=== PATIENT | male | born 1950 | race African-American/Black ===

== ENCOUNTER 2023-01-23 17:37 | Emergency (ER) | payer OTHER ==
[2023-01-23 17:42] VITALS: TEMP 98
[2023-01-23] MEDS ORDERED: cloNIDine HCL 0.1 MG TAB PO STA (19:58)
[2023-01-23 20:38] LABS: Basophils % (A) 0 %; Eosinophils # (A) 0.1 k/uL (0-0.7); Eosinophils % (A) 1 %; HCT 37.6 % (39.0-53.0); HGB 12.1 gm/dL (13.0-17.5); Lymphocytes # (A) 1.5 k/uL (1.0-4.8); Lymphocytes % (A) 27 %; MCH 29.9 pg (25.0-35.0); MCHC 32.2 g/dL (31.0-37.0); MCV 92.9 fL (80.0-100.0); Monocytes # (A) 0.3 k/uL (0-1.0); Monocytes % (A) 6 %; Neutrophils # (A) 3.4 k/uL (1.3-7.7); Neutrophils % (A) 64 %; Platelet Count 165 k/uL (150-450); RBC 4.05 m/uL (4.30-5.90); RDW 13.8 % (11.5-15.5); WBC 5.3 k/uL (3.8-10.6)
[2023-01-23 20:52] LABS: ALT 14 U/L (4-49); AST 19 U/L (17-59); African American GFR (CKD) 31 (>60 ml/min/1.73 sqM); Albumin 3.6 g/dL (3.5-5.0); Alkaline Phosphatase 71 U/L (38-126); Anion Gap 7 mmol/L; Blood Urea Nitrogen 41 mg/dL (9-20); Calcium 9.9 mg/dL (8.4-10.2); Carbon Dioxide 30 mmol/L (22-30); Chloride 102 mmol/L (98-107); Glucose 143 mg/dL (74-99); Non-African American GFR(CKD) 26 (>60 ml/min/1.73 sqM); Potassium 3.9 mmol/L (3.5-5.1); Sodium 139 mmol/L (137-145); Total Bilirubin 0.3 mg/dL (0.2-1.3); Total Protein 6.8 g/dL (6.3-8.2)
--- NOTE | 2023-01-23 20:57 | ED ---
General Adult HPI - General Source: patient Mode of arrival: ambulatory Limitations: no limitations <Mariama Hernandes - Last Filed: 01/23/23 20:55> - General Source: RN notes reviewed, old records reviewed <Alexander Garcia - Last Filed: 01/23/23 21:30> - General Chief complaint: Recheck/Abnormal Lab/Rx Stated complaint: Hypertension Time Seen by Provider: 01/23/23 19:57 - History of Present Illness Initial comments: Patient is a 72 year-old male who presents the emergency department for high blood pressure. Patient presented [facility] for crack cocaine today. He was sent to the emergency department due to high blood pressure in the 200s/110s refractory to clonidine. Patient has a history of high blood pressure states he has been taking his medication as directed. He denies chest pain, shortness of breath, headache. (Mariama Hernandes) - Related Data Previous Rx's Medication Instructions Recorded cloNIDine HCL [Catapres] 0.1 mg PO TID 10 Days #30 tab 01/23/23 Allergies Allergy/AdvReac Type Severity Reaction Status Date / Time No Known Allergies Allergy Verified 01/23/23 17:42 Review of Systems ROS Other: All systems not noted in ROS Statement are negative. <Mariama Hernandes - Last Filed: 01/23/23 20:55> ROS Other: All systems not noted in ROS Statement are negative. <Alexander Garcia - Last Filed: 01/23/23 21:30> ROS Statement: Those systems with pertinent positive or pertinent negative responses have been documented in the HPI. Past Medical History Past Medical History: Diabetes Mellitus, Hypertension History of Any Multi-Drug Resistant Organisms: None Reported Past Surgical History: No Surgical Hx Reported Past Psychological History: No Psychological Hx Reported Smoking Status: Current every day smoker Past Alcohol Use History: None Reported Past Drug Use History: Cocaine <Mariama Hernandes - Last Filed: 01/23/23 20:55> General Exam Limitations: no limitations <Mariama Hernandes - Last Filed: 01/23/23 20:55> General appearance: alert, in no apparent distress Head exam: Present: atraumatic, normocephalic Eye exam: Present: normal appearance, PERRL ENT exam: Present: normal exam Neck exam: Present: normal inspection. Absent: tenderness, meningismus Respiratory exam: Present: normal lung sounds bilaterally. Absent: respiratory distress, wheezes Cardiovascular Exam: Present: regular rate, normal rhythm GI/Abdominal exam: Present: soft. Absent: distended, tenderness, guarding Extremities exam: Present: normal inspection, normal capillary refill. Absent: pedal edema Neurological exam: Present: alert, oriented X3, CN II-XII intact. Absent: motor sensory deficit Psychiatric exam: Present: normal affect, normal mood Skin exam: Present: warm, dry, intact. Absent: cyanosis, diaphoretic <Alexander Garcia - Last Filed: 01/23/23 21:30> - General Exam Comments Initial Comments: Visual Physical Exam Vital signs reviewed General: Well-appearing, nontoxic, no acute distress. Head: Normocephalic, atraumatic Eyes: PERRLA, EOMI ENT: Airway patent Chest: Nonlabored breathing Skin: No visual rash, normal skin tone Neuro: Alert and oriented 3 Musculoskeletal: No gross abnormalities (Mariama Hernandes) Course Vital Signs 01/23/23 01/23/23 01/23/23 17:40 19:54 20:50 Temperature 98 F Pulse Rate 63 Respiratory 20 Rate Blood Pressure 157/88 186/102 220/110 O2 Sat by Pulse 96 Oximetry 01/23/23 21:17 Temperature Pulse Rate 66 Respiratory 18 Rate Blood Pressure 195/132 O2 Sat by Pulse Oximetry Medical Decision Making - Lab Data Result diagrams: 01/23/23 20:20 01/23/23 20:20 <Mariama Hernandes - Last Filed: 01/23/23 20:55> - Lab Data Result diagrams: 01/23/23 20:20 01/23/23 20:20 <Alexander Garcia - Last Filed: 01/23/23 21:30> - Medical Decision Making Was pt. sent in by a medical professional or institution (, PA, COMPLIANCE ADMINISTRATOR, urgent care, hospital, or detention...) When possible be specific @ -[Sent in by [facility] for elevated blood pressure Did you speak to anyone other than the patient for history (EMS, parent, family, police, friend...)? What history was obtained from this source @ -No Did you review nursing and triage notes (agree or disagree)? Why? @ -I reviewed and agree with nursing and triage notes Were old charts reviewed (outside hosp., previous admission, EMS record, old EKG, old radiological studies, urgent care reports/EKG's, detention records)? Report findings @ -No old charts were reviewed Differential Diagnosis (chest pain, altered mental status, abdominal pain women, abdominal pain men, vaginal bleeding, weakness, fever, dyspnea, syncope, headache, dizziness, GI bleed, back pain, seizure, CVA, palpatations, mental health, musculoskeletal)? @ -[Hypertension, chronic kidney disease, hypertensive emergency, hypertensive urgency, asymptomatic hypertension EKG interpreted by me (3pts min.). @ -EKG: Sinus rhythm, rate of 64, LVH, WA interval 208, QRS duration 85, QTC 440, no ST segment elevation. X-rays interpreted by me (1pt min.). @ -None done CT interpreted by me (1pt min.). @ -None done U/S interpreted by me (1pt. min.). @ -None done What testing was considered but not performed or refused? (CT, X-rays, U/S, labs)? Why? @ -None What meds were considered but not given or refused? Why? @ -None Did you discuss the management of the patient with other professionals (professionals i.e. , PA, COMPLIANCE ADMINISTRATOR, lab, RT, psych nurse, social media designer, receptionist scheduler, teacher, tax compliance officer, case liner)? Give summary @ -No Was smoking cessation discussed for >3mins.? @ -No Was critical care preformed (if so, how long)? @ -No Were there social determinants of health that impacted care today? How? (Homelessness, low income, unemployed, alcoholism, drug addiction, transportation, low edu. Level, literacy, decrease access to med. care, correction, rehab)? @ -[Crack cocaine use Was there de-escalation of care discussed even if they declined (Discuss DNR or withdrawal of care, Hospice)? DNR status @ -No What co-morbidities impacted this encounter? (DM, HTN, Smoking, COPD, CAD, Cancer, CVA, ARF, Chemo, Hep., AIDS, mental health diagnosis, sleep apnea, mor bid obesity)? @ -[History of CK D, hypertension, diabetes, crack cocaine use Was patient admitted / discharged? Hospital course, mention meds given and route, prescriptions, significant lab abnormalities, going to OR and other pertinent info. @ -[72-year-old male with chronic kidney disease, hypertension, and currently in rehabilitation for cocaine use. Patient has asymptomatic hypertension. He states his blood pressure has been elevated for many years. His blood pressure is elevated in the emergency department however he is asymptomatic. He has an elevated creatinine without a baseline for comparison but he does report he's been told he has chronic kidney disease. He has mild anemia. Patient is currently on lisinopril, hydrochlorothiazide, nifedipine he was started on clonidine for resistant hypertension. I think the patient will benefit from continuation on this medication, 0.1 mg 3 times daily and he should follow with his primary care physician. Undiagnosed new problem with uncertain prognosis? @ -No Drug Therapy requiring intensive monitoring for toxicity (Heparin, Nitro, Insulin, Cardizem)? @ -No Were any procedures done? @ -No Diagnosis/symptom? @ -Asymptomatic hypertension Acute, or Chronic, or Acute on Chronic? @ -Chronic Uncomplicated (without systemic symptoms) or Complicated (systemic symptoms)? @ -Complicated Side effects of treatment? @ -No Exacerbation, Progression, or Severe Exacerbation? @ -No Poses a threat to life or bodily function? How? (Chest pain, USA, CA, pneumonia, PE, COPD, DKA, ARF, appy, cholecystitis, CVA, Diverticulitis, Homicidal, Suicidal, threat to staff... and all critical care pts) @ -Moderate risk, untreated hypertension (Alexander Garcia) - Lab Data Lab Results 01/23/23 01/23/23 Range/Units 20:20 20:20 WBC 5.3 (3.8-10.6) k/uL RBC 4.05 L (4.30-5.90) m/uL Hgb 12.1 L (13.0-17.5) gm/dL Hct 37.6 L (39.0-53.0) % MCV 92.9 (80.0-100.0) fL MCH 29.9 (25.0-35.0) pg MCHC 32.2 (31.0-37.0) g/dL RDW 13.8 (11.5-15.5) % Plt Count 165 (150-450) k/uL MPV 9.0 Neutrophils % 64 % Lymphocytes % 27 % Monocytes % 6 % Eosinophils % 1 % Basophils % 0 % Neutrophils # 3.4 (1.3-7.7) k/uL Lymphocytes # 1.5 (1.0-4.8) k/uL Monocytes # 0.3 (0-1.0) k/uL Eosinophils # 0.1 (0-0.7) k/uL Basophils # 0.0 (0-0.2) k/uL Sodium 139 (137-145) mmol/L Potassium 3.9 (3.5-5.1) mmol/L Chloride 102 (98-107) mmol/L Carbon Dioxide 30 (22-30) mmol/L Anion Gap 7 mmol/L BUN 41 H (9-20) mg/dL Creatinine 2.40 H (0.66-1.25) mg/dL Est GFR (CKD-EPI)AfAm 31 (>60 ml/min/1.73 sqM) Est GFR (CKD-EPI)NonAf 26 (>60 ml/min/1.73 sqM) Glucose 143 H (74-99) mg/dL Calcium 9.9 (8.4-10.2) mg/dL Total Bilirubin 0.3 (0.2-1.3) mg/dL AST 19 (17-59) U/L ALT 14 (4-49) U/L Alkaline Phosphatase 71 (38-126) U/L Total Protein 6.8 (6.3-8.2) g/dL Albumin 3.6 (3.5-5.0) g/dL Disposition <Mariama Hernandes - Last Filed: 01/23/23 20:55> Is patient prescribed a controlled substance at d/c from ED?: No Time of Disposition: 21:28 <Alexander Garcia - Last Filed: 01/23/23 21:30> Clinical Impression: Hypertension Disposition: HOME SELF-CARE Condition: Fair Instructions (If sedation given, give patient instructions): Hypertension (ED) Additional Instructions: Please monitor blood pressure closely and follow with your primary care physician. Please also follow with kidney specialist. Please return with symptoms of chest pain, abdominal pain, headache or stroke symptoms. Prescriptions: cloNIDine HCL [Catapres] 0.1 mg PO TID 10 Days #30 tab Referrals: None,Stated [Primary Care Provider] - 1-2 days Xiomara Perez MD [STAFF PHYSICIAN] - 1-2 days
[2023-01-23 21:18] VITALS: PULSE 66; RESP 18
[2023-01-23 22:02] VITALS: BP 206/106
== END 2023-01-23 22:10 | disposition home or self-care (01) ==
LOC: EC 17:37
DX: I12.9 Hypertensive chronic kidney disease with stage 1 through stage 4 chronic kidney disease, or unspecified chronic kidney disease (principal); E11.22 Type 2 diabetes mellitus with diabetic chronic kidney disease; N18.9 Chronic kidney disease, unspecified; F17.200 Nicotine dependence, unspecified, uncomplicated
CPT/HCPCS: 36415; 80053; 85025; 99284